=== PATIENT | female | born 1955 | race Caucasian/White ===

== ENCOUNTER → 2017-06-09 | Outpatient (CLI) | payer BC ==
[~2017-06-09] MED LIST: ESTROGEN; LEXAPRO 10MG10 MG PO; NASACORT OTC NS; NATURE-THROI16.25 MG; NORCO 325 MG-51 TAB PO; PRIL40; PROGESTERON; THYROID; XANAX 0.5MG0.5 MG PO; ZOLOFT 100MG100 MG PO; ZOLOFT 25MG25 MG; [UNRECOGNIZED DRUG - OTHER] NS
== END ==
LOC: MC.RAD 14:43
DX: Z12.31 Encounter for screening mammogram for malignant neoplasm of breast (principal)

== ENCOUNTER → 2017-06-14 | Outpatient (CLI) | payer BC | LOC: MC.RAD 10:30 | DX: N63 Unspecified lump in breast (principal); N60.01 Solitary cyst of right breast ==

== ENCOUNTER → 2021-04-14 | Outpatient (CLI) | payer MEDICARE | LOC: COL.RAD 10:14 | DX: E04.1 Nontoxic single thyroid nodule (principal) ==

== ENCOUNTER 2023-03-07 18:04 | Emergency (ER) | payer MEDICARE, BC ==
[~2023-03-07] VITALS: Ht 157.5 cm; Wt 63.6 kg
[2023-03-07 18:14] VITALS: TEMP 98.2
[2023-03-07 20:50] VITALS: BP 145/81; PULSE 80
== END 2023-03-07 20:49 | disposition home or self-care (01) ==
LOC: COL.ER 18:04
DX: R51.9 Headache, unspecified (principal); Z87.891 Personal history of nicotine dependence; Z86.69 Personal history of other diseases of the nervous system and sense organs
CPT/HCPCS: J0780; J1200; J1885